=== PATIENT | female | born 1945 | race Caucasian/White ===

== ENCOUNTER → 2016-05-24 | Outpatient (CLI) | payer OTHER, BC ==
--- NOTE | 2016-05-24 16:35 | DX ---
Chest, PA and Lateral History: Chest wall pain Comparison: October 15, 2007 Findings: Lungs are clear, without infiltrate or consolidation. Heart size is normal. There is no mir nopathy or mass lesion. There is no pleural effusion or pneumothorax. Bones are unremarkable for age. No rib fracture identified. Stable right upper quadrant surgical clips are consistent with prior cho lecystectomy. Impression: No source for pain identified.
== END ==
LOC: GIMAGING 16:21
PROVIDERS: ATTEND Family Medicine
DX: R07.89 Other chest pain (principal)
CPT/HCPCS: 71020-PO

== ENCOUNTER → 2016-09-04 | Outpatient (CLI) | payer OTHER, BC | LOC: CIMAGING 12:19 | DX: Z12.31 Encounter for screening mammogram for malignant neoplasm of breast (principal) | CPT/HCPCS: G0202 ==

== ENCOUNTER → 2016-12-12 | Outpatient (CLI) | payer OTHER, BC | LOC: CIMAGING 13:19 | PROVIDERS: ATTEND Physician Assistant Medical | DX: M25.511 Pain in right shoulder (principal) | CPT/HCPCS: 76882-PO ==

== ENCOUNTER → 2018-01-05 | Outpatient (CLI) | payer OTHER, BC | LOC: CIMAGING 10:34 | PROVIDERS: ATTEND Obstetrics & Gynecology | DX: Z12.31 Encounter for screening mammogram for malignant neoplasm of breast (principal) ==